=== PATIENT | female | born 1930 | race African-American/Black ===

== ENCOUNTER 2017-12-11 14:26 | Emergency (ER) | payer MEDICARE, OTHER ==
[~2017-12-11] VITALS: Ht 170.2 cm; Wt 77.0 kg
[~2017-12-11 14:26] MED LIST: ALPR-623 PO; CLON-529 PO; FURO-150 PO; HYDR-4069 PO; ISOS30TA6 PO; LABE100T PO; LISI40TA4 PO; MULT-1179 PO; PANT-47 PO; POTA8TAB3 PO
[2017-12-11 15:32] LABS: EOSINOPHILS # (AUTO) 0.1 X10'3 (0-0.9); EOSINOPHILS % (AUTO) 1.6 % (0-6); HEMATOCRIT 33.8 % (35.0-45.0); HEMOGLOBIN 11.1 g/dl (12.0-16.0); LYMPHOCYTES # (AUTO) 1.1 X10'3 (1.1-4.8); LYMPHOCYTES % (AUTO) 25.7 % (21-51); MEAN CORPUSCULAR HEMOGLOBIN 30.6 PG (27.0-31.0); MEAN CORPUSCULAR HGB CONC 32.8 % (33.0-36.5); MEAN CORPUSCULAR VOLUME 93.4 FL (78-98); MONOCYTES # (AUTO) 0.4 X10'3 (0-0.9); NEUTROPHILS # (AUTO) 2.8 X10'3 (1.8-7.7); NEUTROPHILS % (AUTO) 63.7 % (42-75); PLATELET COUNT 206 X10'3 (140-440); RED BLOOD COUNT 3.62 X10'6 (4.20-5.60); RED CELL DISTRIBUTION WIDTH 14.1 % (11.5-14.5); WHITE BLOOD COUNT 4.4 X10'3 (4.5-11.0)
[2017-12-11 15:47] LABS: ALANINE AMINOTRANSFERASE 25 U/L (12-78); ALBUMIN 3.8 G/DL (3.4-5.0); ALBUMIN/GLOBULIN RATIO 0.9 (1.1-1.5); ALKALINE PHOSPHATASE 100 IU/L (46-116); ANION GAP 9 (8-16); ASPARTATE AMINO TRANSFERASE 22 U/L (10-37); BILIRUBIN,TOTAL 0.5 MG/DL (0.1-1.0); BLOOD UREA NITROGEN 20 MG/DL (7-18); BUN/CREATININE RATIO 18.2 (6.6-38.0); CALCIUM 9.5 MG/DL (8.5-10.1); CHLORIDE 107 MMOL/L (99-107); GLUCOSE 95 MG/DL (70-104); POTASSIUM 3.9 MMOL/L (3.5-5.1); SODIUM 147 MMOL/L (135-145); TOTAL CARBON DIOXIDE 30.6 MMOL/L (24-32); TOTAL PROTEIN 7.9 G/DL (6.4-8.2); eGFR 57 ML/MIN
[2017-12-11] MEDS ORDERED: AZI25OT PO (16:19)
[2017-12-11 16:37] VITALS: BP 141/71
== END 2017-12-11 16:39 | disposition home or self-care (01) ==
LOC: ER 14:27
DX: J20.9 Acute bronchitis, unspecified (principal); I13.0 Hypertensive heart and chronic kidney disease with heart failure and stage 1 through stage 4 chronic kidney disease, or unspecified chronic kidney disease; I50.9 Heart failure, unspecified; N18.9 Chronic kidney disease, unspecified; G89.29 Other chronic pain; F41.9 Anxiety disorder, unspecified; M19.90 Unspecified osteoarthritis, unspecified site; Z88.8 Allergy status to other drugs, medicaments and biological substances; Z88.0 Allergy status to penicillin; Z88.5 Allergy status to narcotic agent; Z88.6 Allergy status to analgesic agent
CPT/HCPCS: 36415; 71046; 80053; 83605; 85025; 87040; 99285

== ENCOUNTER 2018-07-07 20:47 | Emergency (ER) | payer MEDICARE, OTHER ==
[~2018-07-07] VITALS: Ht 170.2 cm; Wt 79.0 kg
[~2018-07-07 20:47] MED LIST changes: -ALPR-623 PO; -CLON-529 PO; -ISOS30TA6 PO; -LABE100T PO; +LABE100T5 PO; +LISI10TA4 PO; -LISI40TA4 PO
[2018-07-07 22:10] LABS: BASOPHILS # (AUTO) 0.1 X10'3 (0-0.2); BASOPHILS % (AUTO) 1.3 % (0-1); EOSINOPHILS # (AUTO) 0.1 X10'3 (0-0.9); EOSINOPHILS % (AUTO) 1.7 % (0-6); HEMOGLOBIN 10.4 g/dl (12.0-16.0); LYMPHOCYTES # (AUTO) 1.3 X10'3 (1.1-4.8); LYMPHOCYTES % (AUTO) 33.9 % (21-51); MEAN CORPUSCULAR HEMOGLOBIN 30.6 PG (27.0-31.0); MEAN CORPUSCULAR HGB CONC 32.4 % (33.0-36.5); MEAN CORPUSCULAR VOLUME 94.3 FL (78-98); MEAN PLATELET VOLUME 8.5 FL (7.4-10.4); MONOCYTES # (AUTO) 0.4 X10'3 (0-0.9); NEUTROPHILS % (AUTO) 53.1 % (42-75); PLATELET COUNT 201 X10'3 (140-440); RED BLOOD COUNT 3.39 X10'6 (4.20-5.60); RED CELL DISTRIBUTION WIDTH 13.7 % (11.5-14.5); WHITE BLOOD COUNT 3.8 X10'3 (4.5-11.0)
[2018-07-07 22:21] LABS: D-DIMER 1.14 MG/L FEU (0-0.50); PROTHROMBIN TIME 10.5 SECONDS (9.0-12.0)
[2018-07-07 22:40] LABS: ALANINE AMINOTRANSFERASE 22 U/L (12-78); ALBUMIN 3.6 G/DL (3.4-5.0); ALKALINE PHOSPHATASE 101 IU/L (46-116); ANION GAP 8 (8-16); ASPARTATE AMINO TRANSFERASE 18 U/L (10-37); BILIRUBIN,TOTAL 0.4 MG/DL (0.1-1.0); BLOOD UREA NITROGEN 13 MG/DL (7-18); BUN/CREATININE RATIO 11.3 (6.6-38.0); CALCIUM 9.3 MG/DL (8.5-10.1); CHLORIDE 105 MMOL/L (99-107); CREATININE 1.15 MG/DL (0.40-0.90); GLUCOSE 103 MG/DL (70-104); POTASSIUM 3.9 MMOL/L (3.5-5.1); SODIUM 138 MMOL/L (135-145); TOTAL CARBON DIOXIDE 25.1 MMOL/L (24-32); TOTAL PROTEIN 7.1 G/DL (6.4-8.2); eGFR 54 ML/MIN
[2018-07-07 22:40] LABS: CLARITY,URINE SLIGHTLY CLOUDY (Clear); COLOR,URINE STRAW (Yellow); GLUCOSE, URINE NEGATIVE (Neg); KETONES,URINE NEGATIVE (Neg); LEUKOCYTE ESTERASE ,URINE SMALL (Neg); NITRITES, URINE POSITIVE (Neg); OCCULT BLOOD,URINE NEGATIVE (Neg); PROTEIN,URINE NEGATIVE (Neg); UROBILINOGEN,URINE 0.2 E.U/dL (0.2-1.0)
[2018-07-07 22:51] LABS: UA COLLECTION TYPE VOIDED
[2018-07-07 22:52] LABS: BACTERIA,URINE 4+ /HPF (Neg); RBC,URINE NONE SEEN /HPF (0-2); SQUAMOUS EPITHELIAL CELL,UR NONE SEEN /LPF (FEW)
[2018-07-07] MEDS ORDERED: iohexol 350MG/ML 100ml bottle IV ONE (23:27)
[2018-07-08] MEDS ORDERED: iohexol 350MG/ML 100ml bottle IV ONE (00:07)
[2018-07-08] MEDS ORDERED: CefTRIAXone/D5W-Rocephin 1gm 50 ML IV SCH ×2 (00:15→08:00)
[2018-07-08] MEDS ORDERED: acetaminophen 325mg tablet PO ONE (00:30)
[2018-07-08] MEDS ORDERED: furosemide 10 MG/1 ML 10ml inj IV ONE (01:45)
[2018-07-08] MEDS ORDERED: LORazepam 1 MG tablet PO ONE (02:25)
[2018-07-08 02:37] VITALS: BP 172/77
[2018-07-08] MEDS ORDERED: cefTRIAXone 1g/NS 100ml IVPB 100 ML IV SCH (08:00)
== END 2018-07-08 02:39 | disposition home or self-care (01) ==
LOC: ER 20:48
DX: R60.0 Localized edema (principal); I13.0 Hypertensive heart and chronic kidney disease with heart failure and stage 1 through stage 4 chronic kidney disease, or unspecified chronic kidney disease; E11.22 Type 2 diabetes mellitus with diabetic chronic kidney disease; N18.9 Chronic kidney disease, unspecified; I50.9 Heart failure, unspecified; M19.90 Unspecified osteoarthritis, unspecified site; G89.29 Other chronic pain; Z98.890 Other specified postprocedural states; Z90.710 Acquired absence of both cervix and uterus; Z88.6 Allergy status to analgesic agent; Z88.0 Allergy status to penicillin; Z88.5 Allergy status to narcotic agent; Z79.899 Other long term (current) drug therapy
CPT/HCPCS: 36415; 71045; 71275; 80053; 81001; 82553; 83880; 84484; 85025; 85379; 85610; 87077; 87088; 87186; 93005; 96365; 96375; 99285; J0696; J1940; J7030; Q9967

== ENCOUNTER 2018-09-18 14:37 | Emergency (ER) | payer MEDICARE ==
[~2018-09-18] VITALS: Ht 170.2 cm; Wt 80.0 kg
[2018-09-18 15:01] LABS: BASOPHILS % (AUTO) 0.7 % (0-1); EOSINOPHILS # (AUTO) 0.1 X10'3 (0-0.9); EOSINOPHILS % (AUTO) 2.9 % (0-6); HEMATOCRIT 31.9 % (35.0-45.0); HEMOGLOBIN 10.1 g/dl (12.0-16.0); LYMPHOCYTES # (AUTO) 1.3 X10'3 (1.1-4.8); LYMPHOCYTES % (AUTO) 33.7 % (21-51); MEAN CORPUSCULAR HGB CONC 31.5 % (33.0-36.5); MEAN CORPUSCULAR VOLUME 95.1 FL (78-98); MEAN PLATELET VOLUME 9.2 FL (7.4-10.4); MONOCYTES # (AUTO) 0.4 X10'3 (0-0.9); MONOCYTES % (AUTO) 9.4 % (2-12); NEUTROPHILS # (AUTO) 2.1 X10'3 (1.8-7.7); NEUTROPHILS % (AUTO) 53.3 % (42-75); PLATELET COUNT 192 X10'3 (140-440); RED BLOOD COUNT 3.35 X10'6 (4.20-5.60); RED CELL DISTRIBUTION WIDTH 15.4 % (11.5-14.5)
[2018-09-18 15:12] VITALS: BP 137/56
[2018-09-18 15:16] LABS: ALANINE AMINOTRANSFERASE 28 U/L (12-78); ALBUMIN 3.5 G/DL (3.4-5.0); ALKALINE PHOSPHATASE 94 IU/L (46-116); ANION GAP 5 (8-16); ASPARTATE AMINO TRANSFERASE 23 U/L (10-37); BILIRUBIN,TOTAL 0.3 MG/DL (0.1-1.0); BLOOD UREA NITROGEN 25 MG/DL (7-18); BUN/CREATININE RATIO 16.3 (6.6-38.0); CALCIUM 8.7 MG/DL (8.5-10.1); CHLORIDE 107 MMOL/L (99-107); CREATININE 1.53 MG/DL (0.40-0.90); GLUCOSE 129 MG/DL (70-104); SODIUM 143 MMOL/L (135-145); TOTAL CARBON DIOXIDE 30.6 MMOL/L (24-32); TOTAL PROTEIN 6.9 G/DL (6.4-8.2); eGFR 39 ML/MIN
[2018-09-18 15:22] LABS: PARTIAL THROMBOPLASTIN TIME 31 SECONDS (22-32); PROTHROMBIN TIME 10.2 SECONDS (9.0-12.0)
[2018-09-18] MEDS ORDERED: HYDROcodone/acetaminophen 5mg/325mg tablet PO ONE (15:40)
== END 2018-09-18 15:46 | disposition home or self-care (01) ==
LOC: ER 14:37
DX: R07.89 Other chest pain (principal); R60.0 Localized edema; I13.0 Hypertensive heart and chronic kidney disease with heart failure and stage 1 through stage 4 chronic kidney disease, or unspecified chronic kidney disease; E11.22 Type 2 diabetes mellitus with diabetic chronic kidney disease; N18.9 Chronic kidney disease, unspecified; I50.9 Heart failure, unspecified; M19.90 Unspecified osteoarthritis, unspecified site; G89.29 Other chronic pain; Z98.890 Other specified postprocedural states; Z90.710 Acquired absence of both cervix and uterus; Z87.01 Personal history of pneumonia (recurrent); Z88.6 Allergy status to analgesic agent; Z88.5 Allergy status to narcotic agent; Z88.0 Allergy status to penicillin; Z79.899 Other long term (current) drug therapy
CPT/HCPCS: 36415; 71045; 80053; 84484; 85025; 85610; 85730; 93005; 99285

== ENCOUNTER 2018-12-12 07:13 | Inpatient (IN) | payer MEDICARE, OTHER ==
[~2018-12-12] VITALS: Ht 170.2 cm; Wt 83.5 kg
[2018-12-12 08:08] LABS: BASOPHILS % (AUTO) 0.9 % (0-1); EOSINOPHILS # (AUTO) 0.1 X10'3 (0-0.9); EOSINOPHILS % (AUTO) 3.4 % (0-6); HEMATOCRIT 30.1 % (35.0-45.0); HEMOGLOBIN 9.6 g/dl (12.0-16.0); LYMPHOCYTES # (AUTO) 1.3 X10'3 (1.1-4.8); LYMPHOCYTES % (AUTO) 32.5 % (21-51); MEAN CORPUSCULAR HGB CONC 31.8 % (33.0-36.5); MEAN CORPUSCULAR VOLUME 94.2 FL (78-98); MEAN PLATELET VOLUME 9.4 FL (7.4-10.4); MONOCYTES # (AUTO) 0.4 X10'3 (0-0.9); MONOCYTES % (AUTO) 10.3 % (2-12); NEUTROPHILS % (AUTO) 52.9 % (42-75); PLATELET COUNT 183 X10'3 (140-440); RED BLOOD COUNT 3.19 X10'6 (4.20-5.60); WHITE BLOOD COUNT 3.9 X10'3 (4.5-11.0)
[2018-12-12 08:26] LABS: ALANINE AMINOTRANSFERASE 22 U/L (12-78); ALBUMIN 3.5 G/DL (3.4-5.0); ALKALINE PHOSPHATASE 82 IU/L (46-116); ANION GAP 10 (8-16); ASPARTATE AMINO TRANSFERASE 20 U/L (10-37); BILIRUBIN,TOTAL 0.3 MG/DL (0.1-1.0); BLOOD UREA NITROGEN 25 MG/DL (7-18); BUN/CREATININE RATIO 21.4 (6.6-38.0); CALCIUM 8.6 MG/DL (8.5-10.1); CHLORIDE 108 MMOL/L (99-107); CREATININE 1.17 MG/DL (0.40-0.90); GLUCOSE 91 MG/DL (70-104); POTASSIUM 4.2 MMOL/L (3.5-5.1); SODIUM 144 MMOL/L (135-145); TOTAL CARBON DIOXIDE 26.3 MMOL/L (24-32); TOTAL PROTEIN 7.1 G/DL (6.4-8.2); eGFR 53 ML/MIN
[2018-12-12 09:19] LABS: PARTIAL THROMBOPLASTIN TIME 30 SECONDS (22-32); PROTHROMBIN TIME 10.3 SECONDS (9.0-12.0)
[2018-12-12] MEDS ORDERED: aspirin 81mg tab.chew PO ONE (09:25)
[2018-12-12] MEDS: nitroGLYCERIN 0.4mg SUBLingual tab SL PRN ×2 (09:28→09:50)
[2018-12-12] MEDS ORDERED: AMLO10TA13 PO (09:33)
--- NOTE | 2018-12-12 09:52 | NUR ---
second dose of nitro given.
--- NOTE | 2018-12-12 10:05 | NUR ---
home med taken to the pharmacy.
--- NOTE | 2018-12-12 10:43 | NUR ---
DR. ABRAHAM AT BEDSIDE.
[2018-12-12] MEDS ORDERED: magnesium 4gm in 100ml NS 100 ML IV PRN (11:30)
[2018-12-12] MEDS ORDERED: magnesium Cl slow-release 64mg tablet PO PRN (11:30)
[2018-12-12] MEDS ORDERED: aminophylline 250mg/10ml inj. IV PRN (11:30)
[2018-12-12] MEDS ORDERED: metoprolol tartrate 1mg/ml inj IV PRN (11:30)
[2018-12-12] MEDS ORDERED: docusate sod 100mg capsule PO PRN (11:30)
[2018-12-12] MEDS ORDERED: regadenoson 0.4mg/5ml syringe IV PRN (11:30)
[2018-12-12] MEDS ORDERED: potassium Cl 20 mEq SR tablet PO PRN ×2 (11:30)
[2018-12-12] MEDS ORDERED: acetaminophen 325mg tablet PO PRN ×2 (11:30)
[2018-12-12] MEDS ORDERED: magnesium 2GM in 50ml NS 50 ML IV PRN (11:30)
[2018-12-12] MEDS ORDERED: morphine 4 MG/ML inj SYRINge IV PRN (11:30)
[2018-12-12] MEDS ORDERED: ondansetron/PF 4mg/2ml inj IV PRN (11:30)
[2018-12-12] MEDS ORDERED: potassium Cl 40MEQ/NS 500ml 500 ML IV PRN ×2 (11:30)
[2018-12-12] MEDS ORDERED: nitroGLYCERIN 0.4mg SUBLingual tab SL PRN (11:30)
[2018-12-12] MEDS ORDERED: insulin Lispro (HumaLOG) vial - multi-dose SQ SCH (11:35)
[2018-12-12] MEDS ORDERED: MESSAGE TO PHARMACY PO ONE (11:35)
[2018-12-12] MEDS ORDERED: dextrose 50%-water 50ml dispensing syringe IV PRN ×2 (11:35)
[2018-12-12] MEDS ORDERED: dextrose ORAL solution 15 GM/59 ML bottle PO PRN ×2 (11:35)
[2018-12-12] MEDS ORDERED: glucagon, human recombinant 1mg kit SUBCUT PRN (11:35)
[2018-12-12] MEDS: normal saline 1000ml 1,000 ML IV SCH (11:56)
--- NOTE | 2018-12-12 13:09 | NUR ---
I have received patient report from Justin HUGO
--- NOTE | 2018-12-12 13:11 | NUR ---
PATIENT STATES CP 06/26,OFFERED NITRO SINCE STILL ABLE TO TAKE LAST DOSE HOWEVER PATIENT REFUSED.SHAMIKA HUGO AWARE AND WILL TAKE PATIENT TO NUC MED AND THEN TO ROOM 302.
[2018-12-12] MEDS ORDERED: regadenoson 0.4mg/5ml syringe IV ONE (13:32)
[2018-12-12] MEDS ORDERED: aminophylline inj. 10 ML IV ONE (13:32)
[2018-12-12 13:35] VITALS: BP 209/80
[2018-12-12 14:00] VITALS: BP 220/87
[2018-12-12] MEDS: labetalol 100mg tablet PO SCH ×2 (14:07→20:25)
[2018-12-12 15:36] LABS: HEMOGLOBIN A1C 5.5 % (4.5-6.2)
[2018-12-12] MEDS: hydrALAZINE 25 MG tablet PO SCH (16:08)
--- NOTE | 2018-12-12 17:08 | NUR ---
Patient did not want to have nitro for chest pain, she said she was okay and that it made her have a headache, she didn't want any narcotics either.
--- NOTE | 2018-12-12 18:39 | NUR ---
I GAVE PATIENT REPORT TO GIOVANY ADAIR RN
[2018-12-12 19:00] VITALS: BP 170/82
[2018-12-12] MEDS: heparin, porcine 5000 units/ml vial SQ SCH (20:25)
[2018-12-12] MEDS: HYDROcodone/acetaminophen 5mg/325mg tablet PO PRN (20:26)
[2018-12-12] MEDS: insulin glargine (Lantus) pen - multi-dose SQ SCH (20:36)
[2018-12-12 23:00] VITALS: BP 150/55
[2018-12-13] VITALS (17 sets, daily range): BP systolic 103–193; BP diastolic 44–85
[2018-12-13] MEDS: hydrALAZINE 25 MG tablet PO SCH ×3 (00:32→16:00)
[2018-12-13] MEDS: normal saline 1000ml 1,000 ML IV SCH ×2 (03:52→14:23)
--- NOTE | 2018-12-13 06:00 | NUR ---
Patient in room PCU 3012. I have received report from Cielo HUGO and had the opportunity to ask questions and assume patient care.
--- NOTE | 2018-12-13 06:30 | NUR ---
Problems reprioritized. Patient report given, questions answered & plan of care reviewed with RILEY HUGO.
[2018-12-13 07:14] LABS: BASOPHILS % (AUTO) 1.2 % (0-1); EOSINOPHILS # (AUTO) 0.1 X10'3 (0-0.9); HEMATOCRIT 27.9 % (35.0-45.0); LYMPHOCYTES # (AUTO) 1.3 X10'3 (1.1-4.8); LYMPHOCYTES % (AUTO) 35.7 % (21-51); MEAN CORPUSCULAR HEMOGLOBIN 30.6 PG (27.0-31.0); MEAN CORPUSCULAR HGB CONC 32.3 % (33.0-36.5); MEAN CORPUSCULAR VOLUME 94.6 FL (78-98); MEAN PLATELET VOLUME 9.6 FL (7.4-10.4); MONOCYTES # (AUTO) 0.4 X10'3 (0-0.9); MONOCYTES % (AUTO) 11.4 % (2-12); NEUTROPHILS # (AUTO) 1.7 X10'3 (1.8-7.7); NEUTROPHILS % (AUTO) 47.7 % (42-75); PLATELET COUNT 167 X10'3 (140-440); RED BLOOD COUNT 2.95 X10'6 (4.20-5.60); RED CELL DISTRIBUTION WIDTH 15.3 % (11.5-14.5); WHITE BLOOD COUNT 3.7 X10'3 (4.5-11.0)
[2018-12-13] MEDS: labetalol 100mg tablet PO SCH ×3 (07:17→21:00)
[2018-12-13] MEDS: pantoprazole 40mg Tablet.DR PO SCH (07:17)
[2018-12-13] MEDS: potassium chloride 8mEq ER tablet PO SCH (07:17)
[2018-12-13] MEDS: lisinopril 10 MG tablet PO SCH (07:18)
[2018-12-13] MEDS: heparin, porcine 5000 units/ml vial SQ SCH ×2 (07:24→20:59)
[2018-12-13 07:37] LABS: ALBUMIN 3.1 G/DL (3.4-5.0); ANION GAP 10 (8-16); BLOOD UREA NITROGEN 20 MG/DL (7-18); BUN/CREATININE RATIO 20.4 (6.6-38.0); CALCIUM 8.6 MG/DL (8.5-10.1); CHLORIDE 109 MMOL/L (99-107); CHOL/HDL RATIO 2.9 (0.00-4.99); CHOLESTEROL 176 MG/DL (0-200); CREATININE 0.98 MG/DL (0.40-0.90); GLUCOSE 86 MG/DL (70-104); HDL CHOLESTEROL 61 MG/DL (35-60); LDL CHOLESTEROL 98 MG/DL (50-100); MAGNESIUM 1.9 MG/DL (1.5-2.4); POTASSIUM 3.6 MMOL/L (3.5-5.1); SODIUM 145 MMOL/L (135-145); TOTAL CARBON DIOXIDE 25.8 MMOL/L (24-32); TRIGLYCERIDES 61 MG/DL (20-135); eGFR 65 ML/MIN
[2018-12-13] MEDS ORDERED: furosemide 20MG tablet PO SCH (08:00)
[2018-12-13] MEDS: K and/or MAG REPLACEMENT MC SCH (08:00)
[2018-12-13] MEDS ORDERED: aminophylline inj. 10 ML IV ONE (09:42)
[2018-12-13] MEDS ORDERED: regadenoson 0.4mg/5ml syringe IV ONE (09:42)
--- NOTE | 2018-12-13 11:56 | NUR ---
PAGER ID: [phone] MESSAGE: [id number]. [facility] scan results are up. Tho HUGO [id number]
[2018-12-13] MEDS: HYDROcodone/acetaminophen 5mg/325mg tablet PO PRN (21:00)
[2018-12-13] MEDS: insulin glargine (Lantus) pen - multi-dose SQ SCH (21:00)
--- NOTE | 2018-12-13 23:03 | NUR ---
Patient in room PCU 3025. I have received report from BETHEL Nettles and had the opportunity to ask questions and assume patient care.
[2018-12-14] MEDS: hydrALAZINE 25 MG tablet PO SCH ×2 (00:21→08:06)
[2018-12-14 03:00] VITALS: BP 107/58
[2018-12-14] MEDS: normal saline 1000ml 1,000 ML IV SCH (04:33)
[2018-12-14 05:15] LABS: BASOPHILS % (AUTO) 1.4 % (0-1); EOSINOPHILS # (AUTO) 0.1 X10'3 (0-0.9); EOSINOPHILS % (AUTO) 3.6 % (0-6); HEMATOCRIT 28.7 % (35.0-45.0); HEMOGLOBIN 9.3 g/dl (12.0-16.0); LYMPHOCYTES # (AUTO) 1.3 X10'3 (1.1-4.8); LYMPHOCYTES % (AUTO) 36.8 % (21-51); MEAN CORPUSCULAR HEMOGLOBIN 30.4 PG (27.0-31.0); MEAN CORPUSCULAR HGB CONC 32.5 % (33.0-36.5); MEAN CORPUSCULAR VOLUME 93.6 FL (78-98); MEAN PLATELET VOLUME 9.8 FL (7.4-10.4); MONOCYTES # (AUTO) 0.4 X10'3 (0-0.9); MONOCYTES % (AUTO) 11.1 % (2-12); NEUTROPHILS # (AUTO) 1.7 X10'3 (1.8-7.7); NEUTROPHILS % (AUTO) 47.1 % (42-75); PLATELET COUNT 177 X10'3 (140-440); RED BLOOD COUNT 3.07 X10'6 (4.20-5.60); RED CELL DISTRIBUTION WIDTH 14.9 % (11.5-14.5); WHITE BLOOD COUNT 3.5 X10'3 (4.5-11.0)
[2018-12-14 05:22] LABS: ALBUMIN 3.2 G/DL (3.4-5.0); ANION GAP 9 (8-16); BLOOD UREA NITROGEN 21 MG/DL (7-18); BUN/CREATININE RATIO 20.8 (6.6-38.0); CALCIUM 8.9 MG/DL (8.5-10.1); CHLORIDE 105 MMOL/L (99-107); CREATININE 1.01 MG/DL (0.40-0.90); GLUCOSE 92 MG/DL (70-104); MAGNESIUM 1.9 MG/DL (1.5-2.4); SODIUM 140 MMOL/L (135-145); TOTAL CARBON DIOXIDE 26.2 MMOL/L (24-32); eGFR 63 ML/MIN
[2018-12-14 06:00] VITALS: BP 127/64
--- NOTE | 2018-12-14 06:27 | NUR ---
Problems reprioritized. Patient report given, questions answered & plan of care reviewed with Art, RN.
--- NOTE | 2018-12-14 07:55 | NUR ---
Pt ride arrived. Pt previously given DC instructions and had IV removed. Pt escorted to front of lobby where ride was waiting. Addendum: 12/14/18 at 0935 by Jared Vann III, RN This note was put in the wrong chart.
[2018-12-14] MEDS ORDERED: aspirin 81mg tablet.DR PO SCH (08:00)
[2018-12-14] MEDS ORDERED: isosorbide mononitrate 30mg tab.SR.24H PO SCH (08:00)
[2018-12-14] MEDS ORDERED: atorvastatin 20mg tablet PO SCH (08:00)
[2018-12-14] MEDS: K and/or MAG REPLACEMENT MC SCH (08:00)
[2018-12-14] MEDS: potassium chloride 8mEq ER tablet PO SCH (08:06)
[2018-12-14] MEDS: pantoprazole 40mg Tablet.DR PO SCH (08:06)
[2018-12-14 08:07] VITALS: BP_SYST 127
[2018-12-14] MEDS: lisinopril 10 MG tablet PO SCH (08:07)
[2018-12-14] MEDS: heparin, porcine 5000 units/ml vial SQ SCH (08:08)
[2018-12-14] MEDS: labetalol 100mg tablet PO SCH (08:12)
[2018-12-14] MEDS ORDERED: ATOR20TA PO (09:05)
[2018-12-14] MEDS ORDERED: ISOS30TA6 PO (09:05)
[2018-12-14] MEDS ORDERED: ASPI81TA52 PO (09:05)
--- NOTE | 2018-12-14 10:15 | NUR ---
Pt given DC instructions, IV removed. Pt will DC home via WC when her meds arrive from [facility].
--- NOTE | 2018-12-14 10:59 | NUR ---
Pt meds delivered. Pt wheeled out to POV in via volunteer.
== END 2018-12-14 11:00 | disposition home or self-care (01) | DRG 311 ==
LOC: ER 07:13 → ED HOLD 11:28 → PCU 3S 13:55
PROVIDERS: ADMIT Internal Medicine; ATTEND Family Medicine
PROC: 4A02XM4 Measurement of Cardiac Total Activity, External Approach (ICD-10-PCS; principal; 2018-12-12)
PROC: 3E033HZ Introduction of Radioactive Substance into Peripheral Vein, Percutaneous Approach (ICD-10-PCS; 2018-12-12)
DX: I24.9 Acute ischemic heart disease, unspecified (principal); I13.0 Hypertensive heart and chronic kidney disease with heart failure and stage 1 through stage 4 chronic kidney disease, or unspecified chronic kidney disease; I50.32 Chronic diastolic (congestive) heart failure; I71.9 Aortic aneurysm of unspecified site, without rupture; E11.22 Type 2 diabetes mellitus with diabetic chronic kidney disease; F41.9 Anxiety disorder, unspecified; G89.29 Other chronic pain; I25.10 Atherosclerotic heart disease of native coronary artery without angina pectoris; I49.5 Sick sinus syndrome; M54.9 Dorsalgia, unspecified; I34.0 Nonrheumatic mitral (valve) insufficiency; Z60.2 Problems related to living alone; K21.9 Gastro-esophageal reflux disease without esophagitis; M19.90 Unspecified osteoarthritis, unspecified site; N18.9 Chronic kidney disease, unspecified; Z66 Do not resuscitate; Z95.0 Presence of cardiac pacemaker; Z90.710 Acquired absence of both cervix and uterus; Z88.0 Allergy status to penicillin; Z88.6 Allergy status to analgesic agent; Z88.8 Allergy status to other drugs, medicaments and biological substances; Z79.899 Other long term (current) drug therapy; Z92.3 Personal history of irradiation; Z85.3 Personal history of malignant neoplasm of breast
CPT/HCPCS: 36415; 71045; 78451; 80048; 80053; 80061; 82948; 83036; 83735; 84484; 85025; 85610; 85730; 93005; 93017; 93306; 99285; A9500; G0378; J0280; J1644; J1815; J7030

== ENCOUNTER 2019-04-26 23:49 | Emergency (ER) | payer MEDICARE ==
[~2019-04-26] VITALS: Ht 170.2 cm; Wt 77.3 kg
[~2019-04-26 23:49] MED LIST changes: +AMLO10TA13 PO; +ASPI81TA52 PO; +ATOR20TA PO
[2019-04-27 00:44] LABS: BASOPHILS % (AUTO) 0.3 % (0-1); EOSINOPHILS # (AUTO) 0.1 X10'3 (0-0.9); EOSINOPHILS % (AUTO) 3.3 % (0-6); HEMATOCRIT 29.3 % (35.0-45.0); HEMOGLOBIN 9.4 g/dl (12.0-16.0); LYMPHOCYTES # (AUTO) 1.5 X10'3 (1.1-4.8); LYMPHOCYTES % (AUTO) 42.5 % (21-51); MEAN CORPUSCULAR HEMOGLOBIN 30.4 PG (27.0-31.0); MONOCYTES # (AUTO) 0.4 X10'3 (0-0.9); MONOCYTES % (AUTO) 11.7 % (2-12); NEUTROPHILS # (AUTO) 1.5 X10'3 (1.8-7.7); NEUTROPHILS % (AUTO) 42.2 % (42-75); PLATELET COUNT 162 X10'3 (140-440); RED BLOOD COUNT 3.08 X10'6 (4.20-5.60); RED CELL DISTRIBUTION WIDTH 14.3 % (11.5-14.5); WHITE BLOOD COUNT 3.6 X10'3 (4.5-11.0)
[2019-04-27 00:50] LABS: ALANINE AMINOTRANSFERASE 27 U/L (12-78); ALBUMIN 3.4 G/DL (3.4-5.0); ALKALINE PHOSPHATASE 82 IU/L (46-116); ANION GAP 5 (8-16); ASPARTATE AMINO TRANSFERASE 25 U/L (10-37); BILIRUBIN,TOTAL 0.2 MG/DL (0.1-1.0); BLOOD UREA NITROGEN 22 MG/DL (7-18); BUN/CREATININE RATIO 17.2 (6.6-38.0); CALCIUM 8.7 MG/DL (8.5-10.1); CHLORIDE 106 MMOL/L (99-107); CREATININE 1.28 MG/DL (0.40-0.90); GLUCOSE 91 MG/DL (70-104); POTASSIUM 4.3 MMOL/L (3.5-5.1); SODIUM 138 MMOL/L (135-145); TOTAL CARBON DIOXIDE 26.9 MMOL/L (24-32); TOTAL PROTEIN 6.7 G/DL (6.4-8.2); eGFR 48 ML/MIN
[2019-04-27 00:56] LABS: PARTIAL THROMBOPLASTIN TIME 35 SECONDS (22-32)
[2019-04-27] MEDS ORDERED: hyDRALAzine 10mg tablet PO STA (03:15)
[2019-04-27] MEDS ORDERED: nitroGLYCERIN 1gm ointment UD TP ONE (03:15)
[2019-04-27] MEDS ORDERED: labetalol 100mg tablet PO STA (03:15)
[2019-04-27] MEDS ORDERED: hydrALAZINE 25 MG tablet PO ONE (03:25)
[2019-04-27] MEDS ORDERED: HYDROcodone/acetaminophen 5mg/325mg tablet PO STA (05:25)
--- NOTE | 2019-04-27 05:26 | NUR ---
pt was pleased her bp is down, she said now she would like a 5 mg norco to get rid of the rest of the pain. MD informed of VS and request and so I ordered a norco per MD ok. Pt will be discharged.
[2019-04-27 07:07] VITALS: BP 159/73
== END 2019-04-27 07:10 | disposition home or self-care (01) ==
LOC: ER 23:50
DX: I13.0 Hypertensive heart and chronic kidney disease with heart failure and stage 1 through stage 4 chronic kidney disease, or unspecified chronic kidney disease (principal); E11.22 Type 2 diabetes mellitus with diabetic chronic kidney disease; N18.9 Chronic kidney disease, unspecified; I50.9 Heart failure, unspecified; G89.29 Other chronic pain; Z88.6 Allergy status to analgesic agent; Z88.0 Allergy status to penicillin; Z88.8 Allergy status to other drugs, medicaments and biological substances; Z79.899 Other long term (current) drug therapy; Z79.82 Long term (current) use of aspirin; Z87.440 Personal history of urinary (tract) infections; Z87.19 Personal history of other diseases of the digestive system; Z60.2 Problems related to living alone; Z98.890 Other specified postprocedural states; Z90.710 Acquired absence of both cervix and uterus; Z95.0 Presence of cardiac pacemaker
CPT/HCPCS: 36415; 71045; 80053; 83880; 84484; 85025; 85610; 85730; 93005; 99284

== ENCOUNTER 2019-07-02 09:16 | Emergency (ER) | payer MEDICARE ==
[~2019-07-02] VITALS: Ht 170.2 cm; Wt 78.2 kg
[2019-07-02 10:27] LABS: BASOPHILS % (AUTO) 1.4 % (0-1); EOSINOPHILS # (AUTO) 0.1 X10'3 (0-0.9); EOSINOPHILS % (AUTO) 2.4 % (0-6); HEMATOCRIT 32.7 % (35.0-45.0); HEMOGLOBIN 10.5 g/dl (12.0-16.0); LYMPHOCYTES # (AUTO) 1.1 X10'3 (1.1-4.8); LYMPHOCYTES % (AUTO) 31.9 % (21-51); MEAN CORPUSCULAR HEMOGLOBIN 30.9 PG (27.0-31.0); MEAN CORPUSCULAR HGB CONC 32.3 g/dL (33.0-36.5); MEAN CORPUSCULAR VOLUME 95.8 FL (78-98); MEAN PLATELET VOLUME 8.7 FL (7.4-10.4); MONOCYTES # (AUTO) 0.3 X10'3 (0-0.9); MONOCYTES % (AUTO) 9.8 % (2-12); NEUTROPHILS # (AUTO) 1.8 X10'3 (1.8-7.7); NEUTROPHILS % (AUTO) 54.5 % (42-75); PLATELET COUNT 187 X10'3 (140-440); RED BLOOD COUNT 3.41 X10'6 (4.20-5.60); RED CELL DISTRIBUTION WIDTH 13.7 % (11.5-14.5); WHITE BLOOD COUNT 3.4 X10'3 (4.5-11.0)
[2019-07-02 10:41] LABS: ALANINE AMINOTRANSFERASE 28 U/L (12-78); ALBUMIN/GLOBULIN RATIO 1.1 (1.1-1.5); ALKALINE PHOSPHATASE 77 IU/L (46-116); ANION GAP 7 (8-16); ASPARTATE AMINO TRANSFERASE 19 U/L (10-37); BILIRUBIN,TOTAL 0.4 MG/DL (0.1-1.0); BLOOD UREA NITROGEN 23 MG/DL (7-18); BUN/CREATININE RATIO 17.6 (6.6-38.0); CALCIUM 9.1 MG/DL (8.5-10.1); CHLORIDE 109 MMOL/L (99-107); CREATININE 1.31 MG/DL (0.40-0.90); GLUCOSE 89 MG/DL (70-104); POTASSIUM 4.6 MMOL/L (3.5-5.1); SODIUM 142 MMOL/L (135-145); TOTAL CARBON DIOXIDE 25.7 MMOL/L (24-32); TOTAL PROTEIN 7.7 G/DL (6.4-8.2); eGFR 46 ML/MIN
[2019-07-02 10:56] LABS: PARTIAL THROMBOPLASTIN TIME 31 SECONDS (22-32)
[2019-07-02 11:13] VITALS: BP 137/59
--- NOTE | 2019-07-02 11:21 | NUR ---
MD Duval in the room with the patient.
[2019-07-02] MEDS ORDERED: acetaminophen 325mg tablet PO ONE (11:30)
== END 2019-07-02 12:11 | disposition home or self-care (01) ==
LOC: ER 09:16
DX: R07.89 Other chest pain (principal); I13.0 Hypertensive heart and chronic kidney disease with heart failure and stage 1 through stage 4 chronic kidney disease, or unspecified chronic kidney disease; E11.22 Type 2 diabetes mellitus with diabetic chronic kidney disease; N18.9 Chronic kidney disease, unspecified; I50.9 Heart failure, unspecified; M19.90 Unspecified osteoarthritis, unspecified site; G89.29 Other chronic pain; F41.9 Anxiety disorder, unspecified; Z90.710 Acquired absence of both cervix and uterus; Z95.4 Presence of other heart-valve replacement; Z98.890 Other specified postprocedural states; Z95.0 Presence of cardiac pacemaker; Z88.0 Allergy status to penicillin; Z88.5 Allergy status to narcotic agent; Z88.8 Allergy status to other drugs, medicaments and biological substances; Z79.82 Long term (current) use of aspirin; Z79.899 Other long term (current) drug therapy
CPT/HCPCS: 36415; 71045; 80053; 83880; 84484; 85025; 85610; 85730; 93005; 99284

== ENCOUNTER 2019-10-05 13:24 | Emergency (ER) | payer MEDICARE ==
[~2019-10-05] VITALS: Ht 170.2 cm; Wt 60.0 kg
[2019-10-05 14:23] LABS: BASOPHILS % (AUTO) 1.3 % (0-1); EOSINOPHILS # (AUTO) 0.1 X10'3 (0-0.9); HEMOGLOBIN 11.3 g/dl (12.0-16.0); LYMPHOCYTES # (AUTO) 1.3 X10'3 (1.1-4.8); LYMPHOCYTES % (AUTO) 43.6 % (21-51); MEAN CORPUSCULAR HEMOGLOBIN 30.8 PG (27.0-31.0); MEAN CORPUSCULAR HGB CONC 32.2 g/dL (33.0-36.5); MEAN CORPUSCULAR VOLUME 95.7 FL (78-98); MEAN PLATELET VOLUME 8.3 FL (7.4-10.4); MONOCYTES # (AUTO) 0.3 X10'3 (0-0.9); MONOCYTES % (AUTO) 9.2 % (2-12); NEUTROPHILS # (AUTO) 1.3 X10'3 (1.8-7.7); NEUTROPHILS % (AUTO) 43.9 % (42-75); PLATELET COUNT 218 X10'3 (140-440); RED BLOOD COUNT 3.66 X10'6 (4.20-5.60); WHITE BLOOD COUNT 3.1 X10'3 (4.5-11.0)
[2019-10-05 14:39] LABS: ALANINE AMINOTRANSFERASE 22 U/L (12-78); ALBUMIN 3.9 G/DL (3.4-5.0); ALBUMIN/GLOBULIN RATIO 1.1 (1.1-1.5); ALKALINE PHOSPHATASE 80 IU/L (46-116); AMYLASE 80 U/L (25-115); ANION GAP 9 (8-16); ASPARTATE AMINO TRANSFERASE 25 U/L (10-37); BILIRUBIN,TOTAL 0.3 MG/DL (0.1-1.0); BLOOD UREA NITROGEN 14 MG/DL (7-18); BUN/CREATININE RATIO 12.6 (6.6-38.0); CALCIUM 9.8 MG/DL (8.5-10.1); CHLORIDE 104 MMOL/L (99-107); CREATININE 1.11 MG/DL (0.40-0.90); GLUCOSE 107 MG/DL (70-104); LIPASE 84 U/L (73-393); POTASSIUM 4.2 MMOL/L (3.5-5.1); SODIUM 141 MMOL/L (135-145); TOTAL CARBON DIOXIDE 28.1 MMOL/L (24-32); TOTAL PROTEIN 7.6 G/DL (6.4-8.2); eGFR 56 ML/MIN
[2019-10-05] MEDS ORDERED: iohexol 350MG/ML 100ml bottle IV ONE (16:00)
[2019-10-05 17:10] LABS: CLARITY,URINE CLOUDY (Clear); COLOR,URINE YELLOW (Yellow); GLUCOSE, URINE NEGATIVE (Neg); KETONES,URINE NEGATIVE (Neg); LEUKOCYTE ESTERASE ,URINE SMALL (Neg); NITRITES, URINE NEGATIVE (Neg); OCCULT BLOOD,URINE TRACE-INTACT (Neg); PH,URINE 5.5 (4.8-8.0); PROTEIN,URINE TRACE mg/dl (Neg); UROBILINOGEN,URINE 0.2 E.U/dL (0.2-1.0)
[2019-10-05 17:15] LABS: UA COLLECTION TYPE URINAL
[2019-10-05 17:26] LABS: BACTERIA,URINE 4+ /HPF (Neg); RBC,URINE 0-2 /HPF (0-2); WBC,URINE 20-30 /HPF (0-4)
[2019-10-05 17:28] LABS: MUCUS STRANDS MODERATE /LPF (Neg); RENAL CELLS, URINE FEW /HPF; SQUAMOUS EPITHELIAL CELL,UR FEW /LPF (FEW); TRANSITIONAL EPI CELLS,URINE FEW /HPF; WBC CLUMPS,URINE MODERATE /HPF (NEGATIVE)
[2019-10-05] MEDS ORDERED: ONDA4TAB12 PO (18:53)
[2019-10-05 18:59] VITALS: BP 148/68
--- NOTE | 2019-10-08 17:03 | NUR ---
CALLED LEFT A MESSAGE ON HER MESSAGE MACHINE. (IT SAID HER NAME). ASKED HER TO CALL BACK FOR A POSSIBLE MEDICATION. SHE WILL NEED CIPRO 500MG PO BID X 5 DAYS. WE NEED A NAME OF A PHARMACY TO CALL IN RX.
== END 2019-10-05 19:04 | disposition home or self-care (01) ==
LOC: ER 13:25
DX: R11.2 Nausea with vomiting, unspecified (principal); R19.7 Diarrhea, unspecified; R07.89 Other chest pain; M79.18 Myalgia, other site; E86.0 Dehydration; M19.90 Unspecified osteoarthritis, unspecified site; G89.29 Other chronic pain; I13.0 Hypertensive heart and chronic kidney disease with heart failure and stage 1 through stage 4 chronic kidney disease, or unspecified chronic kidney disease; E11.22 Type 2 diabetes mellitus with diabetic chronic kidney disease; N18.9 Chronic kidney disease, unspecified; I50.9 Heart failure, unspecified; F41.9 Anxiety disorder, unspecified; Z90.710 Acquired absence of both cervix and uterus; Z98.890 Other specified postprocedural states; Z87.442 Personal history of urinary calculi; Z88.6 Allergy status to analgesic agent; Z88.5 Allergy status to narcotic agent; Z88.8 Allergy status to other drugs, medicaments and biological substances; Z79.82 Long term (current) use of aspirin; Z79.899 Other long term (current) drug therapy
CPT/HCPCS: 36415; 71045; 71275; 80053; 81001; 82150; 83690; 84484; 85025; 87077; 87088; 87186; 93005; 99284; Q9967

== ENCOUNTER 2019-12-04 16:38 | Emergency (ER) | payer MEDICARE ==
[~2019-12-04] VITALS: Ht 170.2 cm; Wt 77.3 kg
[~2019-12-04 16:38] MED LIST changes: +ONDA4TAB12 PO
[2019-12-04] MEDS ORDERED: ondansetron/PF 4mg/2ml inj IV ONE (17:10)
[2019-12-04] MEDS ORDERED: normal saline 1000ml 1,000 ML IV ONE (17:10)
[2019-12-04] MEDS ORDERED: HYDROcodone/acetaminophen 5mg/325mg tablet PO ONE (17:25)
[2019-12-04] MEDS ORDERED: diphenhydrAMINE 25mg capsule PO ONE (17:25)
[2019-12-04 17:34] LABS: BASOPHILS % (AUTO) 0.3 % (0-1); EOSINOPHILS % (AUTO) 1.5 % (0-6); HEMATOCRIT 31.1 % (35.0-45.0); HEMOGLOBIN 10.2 g/dl (12.0-16.0); LYMPHOCYTES # (AUTO) 1.2 X10'3 (1.1-4.8); LYMPHOCYTES % (AUTO) 36.5 % (21-51); MEAN CORPUSCULAR HEMOGLOBIN 31.1 PG (27.0-31.0); MEAN CORPUSCULAR HGB CONC 32.7 g/dL (33.0-36.5); MEAN CORPUSCULAR VOLUME 94.9 FL (78-98); MEAN PLATELET VOLUME 8.5 FL (7.4-10.4); MONOCYTES # (AUTO) 0.3 X10'3 (0-0.9); MONOCYTES % (AUTO) 10.2 % (2-12); NEUTROPHILS # (AUTO) 1.7 X10'3 (1.8-7.7); NEUTROPHILS % (AUTO) 51.5 % (42-75); PLATELET COUNT 182 X10'3 (140-440); RED BLOOD COUNT 3.28 X10'6 (4.20-5.60); RED CELL DISTRIBUTION WIDTH 14.2 % (11.5-14.5); WHITE BLOOD COUNT 3.3 X10'3 (4.5-11.0)
--- NOTE | 2019-12-04 17:46 | NUR ---
ERMELINDA [phone], [facility]
[2019-12-04 17:47] LABS: PARTIAL THROMBOPLASTIN TIME 31 SECONDS (22-32)
[2019-12-04 17:54] LABS: ALANINE AMINOTRANSFERASE 31 U/L (12-78); ALBUMIN 3.6 G/DL (3.4-5.0); ALBUMIN/GLOBULIN RATIO 1.1 (1.1-1.5); ALKALINE PHOSPHATASE 71 IU/L (46-116); ANION GAP 9 (8-16); ASPARTATE AMINO TRANSFERASE 21 U/L (10-37); BILIRUBIN,TOTAL 0.5 MG/DL (0.1-1.0); BLOOD UREA NITROGEN 17 MG/DL (7-18); CHLORIDE 109 MMOL/L (99-107); CREATININE 1.06 MG/DL (0.40-0.90); GLUCOSE 98 MG/DL (70-104); MAGNESIUM 1.9 MG/DL (1.5-2.4); POTASSIUM 4.1 MMOL/L (3.5-5.1); SODIUM 145 MMOL/L (135-145); TOTAL CARBON DIOXIDE 26.8 MMOL/L (24-32); TOTAL PROTEIN 6.9 G/DL (6.4-8.2); eGFR 59 ML/MIN
[2019-12-04] MEDS ORDERED: ONDA8TAB6 PO (18:49)
[2019-12-04] MEDS ORDERED: AZIT-63 PO (18:49)
[2019-12-04 19:21] VITALS: BP 168/70
== END 2019-12-04 19:51 | disposition home or self-care (01) ==
LOC: ER 16:39
DX: R07.89 Other chest pain (principal); R11.2 Nausea with vomiting, unspecified; R05 Cough; I11.0 Hypertensive heart disease with heart failure; I50.9 Heart failure, unspecified; E11.9 Type 2 diabetes mellitus without complications; M19.90 Unspecified osteoarthritis, unspecified site; G89.29 Other chronic pain; F41.9 Anxiety disorder, unspecified; Z90.710 Acquired absence of both cervix and uterus; Z98.890 Other specified postprocedural states; Z60.2 Problems related to living alone; Z95.0 Presence of cardiac pacemaker; Z88.6 Allergy status to analgesic agent; Z88.0 Allergy status to penicillin; Z88.5 Allergy status to narcotic agent; Z79.82 Long term (current) use of aspirin; Z79.899 Other long term (current) drug therapy
CPT/HCPCS: 36415; 71045; 80053; 83605; 83735; 84145; 84484; 85025; 85610; 85730; 87040; 93005; 96374; 99284; J2405; J7030; Q0163

== ENCOUNTER 2020-03-26 07:12 | Emergency (ER) | payer MEDICARE ==
[~2020-03-26] VITALS: Ht 170.2 cm; Wt 77.9 kg
[~2020-03-26 07:12] MED LIST changes: +ONDA8TAB6 PO
[2020-03-26 07:53] LABS: BASOPHILS # (AUTO) 0.1 X10'3 (0-0.2); BASOPHILS % (AUTO) 1.4 % (0-1); EOSINOPHILS # (AUTO) 0.1 X10'3 (0-0.9); HEMATOCRIT 31.6 % (35.0-45.0); HEMOGLOBIN 10.1 g/dl (12.0-16.0); LYMPHOCYTES # (AUTO) 1.1 X10'3 (1.1-4.8); LYMPHOCYTES % (AUTO) 30.5 % (21-51); MEAN CORPUSCULAR HEMOGLOBIN 30.6 PG (27.0-31.0); MEAN CORPUSCULAR HGB CONC 32.1 g/dL (33.0-36.5); MEAN CORPUSCULAR VOLUME 95.2 FL (78-98); MEAN PLATELET VOLUME 9.1 FL (7.4-10.4); MONOCYTES # (AUTO) 0.3 X10'3 (0-0.9); MONOCYTES % (AUTO) 9.1 % (2-12); NEUTROPHILS # (AUTO) 2.1 X10'3 (1.8-7.7); PLATELET COUNT 170 X10'3 (140-440); RED BLOOD COUNT 3.31 X10'6 (4.20-5.60); RED CELL DISTRIBUTION WIDTH 13.4 % (11.5-14.5); WHITE BLOOD COUNT 3.7 X10'3 (4.5-11.0)
[2020-03-26] MEDS ORDERED: nitroGLYCERIN 0.4mg/hour patch TD ONE (08:05)
[2020-03-26 08:08] LABS: ALANINE AMINOTRANSFERASE 19 U/L (12-78); ALBUMIN 3.6 G/DL (3.4-5.0); ALBUMIN/GLOBULIN RATIO 1.1 (1.1-1.5); ALKALINE PHOSPHATASE 71 IU/L (46-116); ANION GAP 9 (8-16); ASPARTATE AMINO TRANSFERASE 25 U/L (10-37); BILIRUBIN,TOTAL 0.3 MG/DL (0.1-1.0); BLOOD UREA NITROGEN 21 MG/DL (7-18); BUN/CREATININE RATIO 17.2 (6.6-38.0); CALCIUM 8.9 MG/DL (8.5-10.1); CHLORIDE 109 MMOL/L (99-107); CREATININE 1.22 MG/DL (0.40-0.90); GLUCOSE 102 MG/DL (70-104); SODIUM 145 MMOL/L (135-145); TOTAL CARBON DIOXIDE 26.8 MMOL/L (24-32); TOTAL PROTEIN 6.9 G/DL (6.4-8.2); eGFR 50 ML/MIN
[2020-03-26] MEDS ORDERED: acetaminophen 325mg tablet PO ONE (09:15)
[2020-03-26 09:48] VITALS: BP 144/68
== END 2020-03-26 09:52 | disposition home or self-care (01) ==
LOC: ER 07:13
DX: R07.89 Other chest pain (principal); I13.0 Hypertensive heart and chronic kidney disease with heart failure and stage 1 through stage 4 chronic kidney disease, or unspecified chronic kidney disease; E11.22 Type 2 diabetes mellitus with diabetic chronic kidney disease; N18.9 Chronic kidney disease, unspecified; I50.9 Heart failure, unspecified; M19.90 Unspecified osteoarthritis, unspecified site; G89.29 Other chronic pain; Z98.890 Other specified postprocedural states; Z90.710 Acquired absence of both cervix and uterus; Z95.0 Presence of cardiac pacemaker; Z87.01 Personal history of pneumonia (recurrent); Z88.6 Allergy status to analgesic agent; Z88.0 Allergy status to penicillin; Z88.5 Allergy status to narcotic agent; Z79.82 Long term (current) use of aspirin; Z79.899 Other long term (current) drug therapy
CPT/HCPCS: 36415; 71045; 80053; 84484; 85025; 93005; 99285

== ENCOUNTER 2020-09-22 18:25 | Emergency (ER) | payer MEDICARE ==
[~2020-09-22] VITALS: Ht 170.2 cm; Wt 66.3 kg
[2020-09-22 19:09] LABS: CLARITY,URINE CLEAR (Clear); COLOR,URINE YELLOW (Yellow); GLUCOSE, URINE NEGATIVE (Neg); KETONES,URINE TRACE mg/dl (Neg); LEUKOCYTE ESTERASE ,URINE NEGATIVE (Neg); NITRITES, URINE NEGATIVE (Neg); OCCULT BLOOD,URINE NEGATIVE (Neg); PH,URINE 5.5 (4.8-8.0); PROTEIN,URINE 100 mg/dl (Neg)
[2020-09-22 19:16] LABS: UA COLLECTION TYPE CLN CATCH MIDSTREAM
[2020-09-22 19:17] LABS: BACTERIA,URINE FEW /HPF (Neg); RBC,URINE 0-2 /HPF (0-2); SQUAMOUS EPITHELIAL CELL,UR FEW /LPF (FEW); WBC,URINE 0-4 /HPF (0-4)
[2020-09-22 19:57] LABS: BASOPHILS % (AUTO) 0.5 % (0-1); EOSINOPHILS % (AUTO) 0 % (0-6); HEMATOCRIT 32.9 % (35.0-45.0); HEMOGLOBIN 10.6 g/dl (12.0-16.0); LYMPHOCYTES # (AUTO) 0.7 X10'3 (1.1-4.8); LYMPHOCYTES % (AUTO) 19.9 % (21-51); MEAN CORPUSCULAR HGB CONC 32.3 g/dL (33.0-36.5); MEAN CORPUSCULAR VOLUME 95.9 FL (78-98); MONOCYTES # (AUTO) 0.3 X10'3 (0-0.9); MONOCYTES % (AUTO) 8.2 % (2-12); NEUTROPHILS # (AUTO) 2.4 X10'3 (1.8-7.7); NEUTROPHILS % (AUTO) 71.4 % (42-75); PLATELET COUNT 123 X10'3 (140-440); RED BLOOD COUNT 3.43 X10'6 (4.20-5.60); WHITE BLOOD COUNT 3.4 X10'3 (4.5-11.0)
[2020-09-22 20:13] LABS: ALANINE AMINOTRANSFERASE 30 U/L (12-78); ALBUMIN 3.3 G/DL (3.4-5.0); ALBUMIN/GLOBULIN RATIO 0.9 (1.1-1.5); ALKALINE PHOSPHATASE 55 IU/L (46-116); ANION GAP 7 (8-16); ASPARTATE AMINO TRANSFERASE 47 U/L (10-37); BILIRUBIN,TOTAL 0.5 MG/DL (0.1-1.0); BLOOD UREA NITROGEN 22 MG/DL (7-18); BUN/CREATININE RATIO 17.2 (6.6-38.0); CALCIUM 8.6 MG/DL (8.5-10.1); CHLORIDE 104 MMOL/L (99-107); CREATININE 1.28 MG/DL (0.40-0.90); GLUCOSE 105 MG/DL (70-104); POTASSIUM 3.6 MMOL/L (3.5-5.1); SODIUM 138 MMOL/L (135-145); TOTAL CARBON DIOXIDE 26.9 MMOL/L (24-32); TOTAL PROTEIN 6.9 G/DL (6.4-8.2); eGFR 48 ML/MIN
[2020-09-22] MEDS ORDERED: aspirin 81mg tab.chew PO ONE (20:25)
[2020-09-22] MEDS ORDERED: acetaminophen 325mg tablet PO ONE (20:25)
[2020-09-22] MEDS ORDERED: normal saline 1000ML IV soln IVB ONE (21:00)
[2020-09-22] MEDS ORDERED: nitroGLYCERIN 1gm ointment UD TP ONE (21:50)
--- NOTE | 2020-09-22 22:06 | NUR ---
Provider wants to hold nitro paste at this time.
[2020-09-23 00:12] VITALS: BP 147/63
== END 2020-09-23 00:48 | disposition home or self-care (01) ==
LOC: ER 18:26
DX: R53.1 Weakness (principal); R07.89 Other chest pain; R43.8 Other disturbances of smell and taste; I11.0 Hypertensive heart disease with heart failure; I50.9 Heart failure, unspecified; I13.0 Hypertensive heart and chronic kidney disease with heart failure and stage 1 through stage 4 chronic kidney disease, or unspecified chronic kidney disease; E11.22 Type 2 diabetes mellitus with diabetic chronic kidney disease; N18.9 Chronic kidney disease, unspecified; M19.90 Unspecified osteoarthritis, unspecified site; G89.29 Other chronic pain; F41.9 Anxiety disorder, unspecified; Z87.01 Personal history of pneumonia (recurrent); Z87.440 Personal history of urinary (tract) infections; Z85.9 Personal history of malignant neoplasm, unspecified; Z90.710 Acquired absence of both cervix and uterus; Z98.890 Other specified postprocedural states; Z95.0 Presence of cardiac pacemaker; Z60.2 Problems related to living alone; Z88.6 Allergy status to analgesic agent; Z88.0 Allergy status to penicillin; Z88.8 Allergy status to other drugs, medicaments and biological substances; Z79.82 Long term (current) use of aspirin; Z79.899 Other long term (current) drug therapy
CPT/HCPCS: 36415; 70450; 80053; 81001; 83880; 84443; 84484; 85025; 93005; 99285; J7030

== ENCOUNTER 2020-09-26 11:49 | Emergency (ER) | payer MEDICARE ==
[~2020-09-26] VITALS: Ht 170.2 cm; Wt 80.0 kg
--- NOTE | 2020-09-26 14:16 | NUR ---
Grandson (who brought pt in) - Porsha: [phone] Granddaughter - Marquise: [phone]
[2020-09-26 14:53] LABS: BASOPHILS % (AUTO) 0.3 % (0-1); EOSINOPHILS % (AUTO) 0 % (0-6); HEMOGLOBIN 10.8 g/dl (12.0-16.0); LYMPHOCYTES # (AUTO) 0.5 X10'3 (1.1-4.8); LYMPHOCYTES % (AUTO) 6.5 % (21-51); MEAN CORPUSCULAR HEMOGLOBIN 30.3 PG (27.0-31.0); MEAN CORPUSCULAR HGB CONC 31.9 g/dL (33.0-36.5); MEAN PLATELET VOLUME 10.2 FL (7.4-10.4); MONOCYTES # (AUTO) 0.3 X10'3 (0-0.9); MONOCYTES % (AUTO) 4.1 % (2-12); NEUTROPHILS # (AUTO) 6.3 X10'3 (1.8-7.7); NEUTROPHILS % (AUTO) 89.1 % (42-75); PLATELET COUNT 180 X10'3 (140-440); RED BLOOD COUNT 3.58 X10'6 (4.20-5.60); RED CELL DISTRIBUTION WIDTH 12.8 % (11.5-14.5)
[2020-09-26 15:02] LABS: PARTIAL THROMBOPLASTIN TIME 40 SECONDS (22-32)
[2020-09-26 15:04] LABS: ALANINE AMINOTRANSFERASE 43 U/L (12-78); ALBUMIN 2.8 G/DL (3.4-5.0); ALBUMIN/GLOBULIN RATIO 0.7 (1.1-1.5); ALKALINE PHOSPHATASE 53 IU/L (46-116); ANION GAP 8 (8-16); ASPARTATE AMINO TRANSFERASE 72 U/L (10-37); BILIRUBIN,TOTAL 0.5 MG/DL (0.1-1.0); BLOOD UREA NITROGEN 27 MG/DL (7-18); BUN/CREATININE RATIO 24.3 (6.6-38.0); CALCIUM 8.7 MG/DL (8.5-10.1); CHLORIDE 105 MMOL/L (99-107); CREATININE 1.11 MG/DL (0.40-0.90); GLUCOSE 131 MG/DL (70-104); POTASSIUM 4.1 MMOL/L (3.5-5.1); SODIUM 139 MMOL/L (135-145); TOTAL CARBON DIOXIDE 26.4 MMOL/L (24-32); eGFR 56 ML/MIN
[2020-09-26 15:25] LABS: CLARITY,URINE CLOUDY (Clear); GLUCOSE, URINE NEGATIVE (Neg); KETONES,URINE TRACE mg/dl (Neg); LEUKOCYTE ESTERASE ,URINE NEGATIVE (Neg); NITRITES, URINE NEGATIVE (Neg); OCCULT BLOOD,URINE NEGATIVE (Neg); PROTEIN,URINE >=300 mg/dl (Neg)
[2020-09-26 15:27] LABS: UA COLLECTION TYPE STRAIGHT CATH
[2020-09-26 15:29] LABS: COLOR,URINE DARK YELLOW (Yellow)
[2020-09-26 15:51] LABS: RBC,URINE NONE SEEN /HPF (0-2); WBC,URINE NONE SEEN /HPF (0-4)
[2020-09-26 15:52] LABS: AMORPHOUS URATES 2+; BACTERIA,URINE NONE SEEN /HPF (Neg); SQUAMOUS EPITHELIAL CELL,UR FEW /LPF (FEW); TRANSITIONAL EPI CELLS,URINE FEW /HPF
[2020-09-26 15:53] LABS: FINE GRANULAR CAST 0-3 /LPF (NEGATIVE); HYALINE CASTS 0-3 /LPF (NEGATIVE)
[2020-09-26] MEDS ORDERED: ondansetron 4mg rapidly disintigrating tab PO ONE (16:45)
[2020-09-26] MEDS ORDERED: HYDROcodone/acetaminophen 5mg/325mg tablet PO ONE (16:45)
[2020-09-26 17:44] VITALS: BP 110/88
== END 2020-09-26 17:45 | disposition home or self-care (01) ==
LOC: ER 11:50
DX: B34.9 Viral infection, unspecified (principal); R53.1 Weakness; R11.0 Nausea; R19.7 Diarrhea, unspecified; I13.0 Hypertensive heart and chronic kidney disease with heart failure and stage 1 through stage 4 chronic kidney disease, or unspecified chronic kidney disease; I50.9 Heart failure, unspecified; E11.22 Type 2 diabetes mellitus with diabetic chronic kidney disease; N18.9 Chronic kidney disease, unspecified; M19.90 Unspecified osteoarthritis, unspecified site; G89.29 Other chronic pain; F41.9 Anxiety disorder, unspecified; Z87.01 Personal history of pneumonia (recurrent); Z87.440 Personal history of urinary (tract) infections; Z85.9 Personal history of malignant neoplasm, unspecified; Z90.710 Acquired absence of both cervix and uterus; Z98.890 Other specified postprocedural states; Z95.0 Presence of cardiac pacemaker; Z60.2 Problems related to living alone; Z88.0 Allergy status to penicillin; Z88.6 Allergy status to analgesic agent; Z88.5 Allergy status to narcotic agent; Z88.8 Allergy status to other drugs, medicaments and biological substances; Z79.82 Long term (current) use of aspirin; Z79.899 Other long term (current) drug therapy
CPT/HCPCS: 36415; 71045; 80053; 81001; 83605; 83880; 84484; 85025; 85610; 85730; 87040; 93005; 99285

== ENCOUNTER 2020-12-11 07:16 | Inpatient (IN) | payer MEDICARE ==
[~2020-12-11] VITALS: Ht 170.2 cm; Wt 74.5 kg
[~2020-12-11 07:16] MED LIST changes: +LISI10TA27 PO; -LISI10TA4 PO
[2020-12-11] MEDS ORDERED: aspirin 81mg tab.chew PO ONE (07:40)
[2020-12-11 07:51] LABS: BASOPHILS % (AUTO) 0.8 % (0-1); EOSINOPHILS # (AUTO) 0.1 X10'3 (0-0.9); EOSINOPHILS % (AUTO) 2.1 % (0-6); HEMATOCRIT 28.8 % (35.0-45.0); HEMOGLOBIN 9.4 g/dl (12.0-16.0); LYMPHOCYTES # (AUTO) 1.1 X10'3 (1.1-4.8); LYMPHOCYTES % (AUTO) 26.8 % (21-51); MEAN CORPUSCULAR HGB CONC 32.6 g/dL (33.0-36.5); MEAN CORPUSCULAR VOLUME 98.2 FL (78-98); MEAN PLATELET VOLUME 9.7 FL (7.4-10.4); MONOCYTES # (AUTO) 0.5 X10'3 (0-0.9); MONOCYTES % (AUTO) 13.3 % (2-12); NEUTROPHILS # (AUTO) 2.3 X10'3 (1.8-7.7); PLATELET COUNT 157 X10'3 (140-440); RED BLOOD COUNT 2.93 X10'6 (4.20-5.60); RED CELL DISTRIBUTION WIDTH 14.3 % (11.5-14.5)
[2020-12-11 08:06] LABS: ALANINE AMINOTRANSFERASE 36 U/L (12-78); ALBUMIN 3.4 G/DL (3.4-5.0); ALKALINE PHOSPHATASE 72 IU/L (46-116); ANION GAP 8 (8-16); ASPARTATE AMINO TRANSFERASE 37 U/L (10-37); BILIRUBIN,TOTAL 0.4 MG/DL (0.1-1.0); BLOOD UREA NITROGEN 24 MG/DL (7-18); BUN/CREATININE RATIO 23.8 (6.6-38.0); CALCIUM 8.9 MG/DL (8.5-10.1); CHLORIDE 108 MMOL/L (99-107); CREATININE 1.01 MG/DL (0.40-0.90); GLUCOSE 94 MG/DL (70-104); POTASSIUM 4.1 MMOL/L (3.5-5.1); SODIUM 143 MMOL/L (135-145); TOTAL CARBON DIOXIDE 27.2 MMOL/L (24-32); TOTAL PROTEIN 6.9 G/DL (6.4-8.2); eGFR 62 ML/MIN
[2020-12-11] MEDS ORDERED: lisinopril 10 MG tablet PO ONE (10:10)
[2020-12-11] MEDS ORDERED: potassium Cl 40MEQ/1/2NS 520ml 520 ML IV PRN ×2 (10:40)
[2020-12-11] MEDS ORDERED: mag hydrox/Alum hydrox/simeth 30ml oral suspension PO PRN (10:40)
[2020-12-11] MEDS ORDERED: diphenhydrAMINE 25mg capsule PO PRN (10:40)
[2020-12-11] MEDS ORDERED: metoprolol tartrate 1mg/ml inj IV PRN (10:40)
[2020-12-11] MEDS ORDERED: magnesium hydroxide 30ml (MOM) UD suspension PO PRN (10:40)
[2020-12-11] MEDS ORDERED: nitroGLYCERIN 0.4mg SUBLingual tab SL PRN (10:40)
[2020-12-11] MEDS ORDERED: magnesium 4gm in 100ml NS 100 ML IV PRN (10:40)
[2020-12-11] MEDS ORDERED: regadenoson 0.4mg/5ml syringe IV PRN (10:40)
[2020-12-11] MEDS ORDERED: ondansetron/PF 4mg/2ml inj IV PRN (10:40)
[2020-12-11] MEDS ORDERED: magnesium 2GM in 50ml NS 50 ML IV PRN (10:40)
[2020-12-11] MEDS ORDERED: magnesium Cl slow-release 64mg tablet PO PRN (10:40)
[2020-12-11] MEDS ORDERED: potassium Cl 20 mEq SR tablet PO PRN ×2 (10:40)
[2020-12-11] MEDS ORDERED: aminophylline 250mg/10ml inj. IV PRN (10:40)
[2020-12-11] MEDS ORDERED: acetaminophen 325mg tablet PO PRN ×2 (10:40)
[2020-12-11] MEDS ORDERED: acetaminophen 650mg rectal suppository RC PRN (10:40)
[2020-12-11] MEDS ORDERED: bisacodyl 10mg suppository rectal RC PRN (10:40)
[2020-12-11] MEDS: normal saline 1000ml 1,000 ML IV SCH (11:10)
[2020-12-11 11:44] LABS: HEMOGLOBIN A1C 5.4 % (4.5-6.2)
[2020-12-11] MEDS ORDERED: POTA8CAP20 PO (12:01)
[2020-12-11] MEDS ORDERED: TOBR5DRO7 EACHEYE (12:01)
[2020-12-11] MEDS ORDERED: CHLO25TA10 PO (12:04)
[2020-12-11] MEDS ORDERED: HYDR-3964 PO (12:04)
[2020-12-11] MEDS ORDERED: HYDR-4070 PO (12:04)
[2020-12-11] MEDS ORDERED: LISI40TA13 PO (12:04)
[2020-12-11] MEDS ORDERED: hydrALAZINE 20mg/ml inj. IV ONE (12:40)
[2020-12-11 12:42] LABS: CLARITY,URINE CLOUDY (Clear); COLOR,URINE YELLOW (Yellow); GLUCOSE, URINE NEGATIVE (Neg); KETONES,URINE NEGATIVE (Neg); LEUKOCYTE ESTERASE ,URINE MODERATE (Neg); NITRITES, URINE NEGATIVE (Neg); OCCULT BLOOD,URINE MODERATE (Neg); PROTEIN,URINE 100 mg/dl (Neg); UROBILINOGEN,URINE 0.2 E.U/dL (0.2-1.0)
[2020-12-11 12:56] LABS: UA COLLECTION TYPE CLN CATCH MIDSTREAM
[2020-12-11 12:57] LABS: BACTERIA,URINE 4+ /HPF (Neg); MUCUS STRANDS FEW /LPF (Neg); SQUAMOUS EPITHELIAL CELL,UR FEW /LPF (FEW); WBC CLUMPS,URINE MODERATE /HPF (NEGATIVE); WBC,URINE TNTC /HPF (0-4)
--- NOTE | 2020-12-11 14:30 | NUR ---
Patient in room PCU 3025. I have received report from MAREN Hutchins RN and had the opportunity to ask questions and assume patient care.
[2020-12-11 15:00] VITALS: BP 188/72
--- NOTE | 2020-12-11 15:00 | NUR ---
received pt into room 3026D oriented to surroundings pt c/o non-radiating chest pain 07/27,oc=809/72, dr. Mayer paged with above information
[2020-12-11] MEDS: CefTRIAXone/D5W-Rocephin 1gm 50 ML IV SCH (16:30)
--- NOTE | 2020-12-11 16:45 | NUR ---
bp =192/76 pt medicated with 10 mg hydralazine slow iv push,per prior order,no reply from Dr. tejada
[2020-12-11] MEDS: hydrALAZINE 20mg/ml inj. IV PRN (16:48)
[2020-12-11 16:57] VITALS: BP 192/76
[2020-12-11 18:00] VITALS: BP 179/58
--- NOTE | 2020-12-11 18:20 | NUR ---
Problems reprioritized. Patient report given, questions answered & plan of care reviewed with gigi gonzalez.
--- NOTE | 2020-12-11 18:53 | NUR ---
orders taken from Dr Mayer for nitro gtt to run at 5mcg,noc shift rn Yobany notified notified
[2020-12-11] MEDS: nitroGLYCERIN-Tridil 50MG/D5W 250 ML IV SCH (19:39)
[2020-12-11] MEDS: K and/or MAG REPLACEMENT MC SCH (19:57)
[2020-12-11 20:00] VITALS: BP 189/74
[2020-12-11] MEDS ORDERED: labetalol 100mg tablet PO SCH (20:00)
[2020-12-11] MEDS ORDERED: HYDROcodone/acetaminophen 5mg/325mg tablet PO PRN (20:00)
[2020-12-11] MEDS: heparin, porcine 5000 units/ml vial SQ SCH (20:07)
[2020-12-11] MEDS: labetalol 100mg tablet PO SCH (20:15)
[2020-12-11 22:00] VITALS: BP 153/63
[2020-12-12] VITALS (20 sets, daily range): BP systolic 126–188; BP diastolic 54–98
[2020-12-12] MEDS: HYDROcodone/acetaminophen 5mg/325mg tablet PO PRN (02:00)
--- NOTE | 2020-12-12 05:25 | NUR ---
Notified pt in [id number] Marzena Biggs was started on a Nitro gtt around 1999 last night @5mcg/ min BP at 1999 was systolic of 190 BP has been trending down and now BP is up to 172 syst. diastolic 62. Would you like the gtt increased? Alex [phone]
[2020-12-12] MEDS: nitroGLYCERIN-Tridil 50MG/D5W 250 ML IV SCH (05:31)
--- NOTE | 2020-12-12 05:33 | NUR ---
pagedominick paez regarding pt BP elevated while on Nitro gtt which was ordered and running @ 5mcg/min. I rcieved new orders to adjust the rate to 7mcg/min. New rate has been adjusted will continue to monitor pt.
[2020-12-12] MEDS: normal saline 1000ml 1,000 ML IV SCH (06:40)
[2020-12-12 07:45] LABS: HEMOGLOBIN 9.5 g/dl (12.0-16.0); MONOCYTES # (AUTO) 0.6 X10'3 (0-0.9); NEUTROPHILS # (AUTO) 2.5 X10'3 (1.8-7.7); WHITE BLOOD COUNT 4.2 X10'3 (4.5-11.0)
[2020-12-12 07:47] LABS: BASOPHILS % (AUTO) 1.1 % (0-1); EOSINOPHILS % (AUTO) 0.9 % (0-6); HEMATOCRIT 29.8 % (35.0-45.0); LYMPHOCYTES # (AUTO) 1.1 X10'3 (1.1-4.8); LYMPHOCYTES % (AUTO) 25.3 % (21-51); MEAN CORPUSCULAR HEMOGLOBIN 31.3 PG (27.0-31.0); MEAN CORPUSCULAR HGB CONC 31.8 g/dL (33.0-36.5); MEAN CORPUSCULAR VOLUME 98.2 FL (78-98); MEAN PLATELET VOLUME 10.1 FL (7.4-10.4); MONOCYTES % (AUTO) 13.2 % (2-12); NEUTROPHILS % (AUTO) 59.5 % (42-75); PLATELET COUNT 168 X10'3 (140-440); RED BLOOD COUNT 3.03 X10'6 (4.20-5.60); RED CELL DISTRIBUTION WIDTH 14.1 % (11.5-14.5)
[2020-12-12] MEDS: heparin, porcine 5000 units/ml vial SQ SCH ×2 (08:00→20:30)
[2020-12-12] MEDS: tobramycin/dexamethasone ophthalmic suspension EACHEYE SCH (08:00)
[2020-12-12] MEDS: labetalol 100mg tablet PO SCH ×3 (08:00→20:27)
[2020-12-12] MEDS: aspirin 81mg tablet.DR PO SCH (08:00)
[2020-12-12] MEDS: K and/or MAG REPLACEMENT MC SCH ×2 (08:00→20:00)
[2020-12-12 08:08] LABS: % IRON SATURATION 18 % (11-46); IRON 31 UG/DL (49-151); TOTAL IRON BINDING CAPACITY 175 UG/DL (259-388)
[2020-12-12 08:20] LABS: ALANINE AMINOTRANSFERASE 33 U/L (12-78); ALBUMIN 3.3 G/DL (3.4-5.0); ALBUMIN/GLOBULIN RATIO 0.9 (1.1-1.5); ALKALINE PHOSPHATASE 73 IU/L (46-116); ANION GAP 8 (8-16); ASPARTATE AMINO TRANSFERASE 32 U/L (10-37); BILIRUBIN,TOTAL 0.4 MG/DL (0.1-1.0); BLOOD UREA NITROGEN 21 MG/DL (7-18); BUN/CREATININE RATIO 20.2 (6.6-38.0); CALCIUM 9.1 MG/DL (8.5-10.1); CHLORIDE 108 MMOL/L (99-107); CHOL/HDL RATIO 2.5 (0.00-4.99); CHOLESTEROL 150 MG/DL (0-200); CREATININE 1.04 MG/DL (0.40-0.90); FERRITIN 236 NG/ML (8-252); GLUCOSE 94 MG/DL (70-104); HDL CHOLESTEROL 60 MG/DL (35-60); LDL CHOLESTEROL 82 MG/DL (50-100); PHOSPHORUS 3.2 MG/DL (2.3-4.5); POTASSIUM 3.9 MMOL/L (3.5-5.1); SODIUM 143 MMOL/L (135-145); TOTAL CARBON DIOXIDE 26.7 MMOL/L (24-32); TOTAL PROTEIN 6.9 G/DL (6.4-8.2); TRIGLYCERIDES 75 MG/DL (20-135); eGFR 60 ML/MIN
[2020-12-12] MEDS ORDERED: hydrALAZINE 20mg/ml inj. IV ONE ×2 (11:15→11:40)
--- NOTE | 2020-12-12 11:55 | NUR ---
assisted primary RN with transporting patient to nuc med for stress test, RN giving hydrazaline IV push as ordered, pt mobile monitor transferred to tele box, assisted pt with toilet needs, arrived to stress lab at 1220
--- NOTE | 2020-12-12 11:59 | NUR ---
11:59 bp 171/80 post iv push
--- NOTE | 2020-12-12 12:00 | NUR ---
Some medications did not scan nurse was helping MRI techs to take her and did not hit save so it timed out.
[2020-12-12] MEDS ORDERED: regadenoson 0.4mg/5ml syringe IV ONE (12:15)
--- NOTE | 2020-12-12 12:20 | NUR ---
BP 170/58, 60 HR, pt in stress lab for test
[2020-12-12] MEDS: chlorthalidone 25mg tablet PO SCH (12:57)
[2020-12-12] MEDS: furosemide 20MG tablet PO SCH (12:57)
[2020-12-12] MEDS: lisinopril 20mg tablet PO SCH (12:58)
[2020-12-12] MEDS: CefTRIAXone/D5W-Rocephin 1gm 50 ML IV SCH ×2 (15:30→15:49)
--- NOTE | 2020-12-12 17:27 | NUR ---
1600 Pt's IV not working. PICC Nurse stated she could not do it. Charge Nurse tried x2 and could not get IV on pt. Called pharmacy and they are doing a 1 time dose at 2000 and then 0800 tomorrow. Pt went to [facility] scan and they wanted saline locked so waited for her to come back then IV went bad with only about 15ml infused.
--- NOTE | 2020-12-12 18:31 | NUR ---
Patient in room PCU 3025. I have received report from Keica Bell RN and had the opportunity to ask questions and assume patient care.
[2020-12-12] MEDS ORDERED: CefTRIAXone/D5W-Rocephin 1gm 50 ML IV ONE (20:00)
[2020-12-12] MEDS: cloNIDine 0.1 mg tablet PO SCH (23:19)
[2020-12-13 02:00] VITALS: BP 164/65
[2020-12-13] MEDS: hydrALAZINE 20mg/ml inj. IV PRN (02:32)
[2020-12-13] MEDS: normal saline 1000ml 1,000 ML IV SCH (02:40)
[2020-12-13 06:17] LABS: BASOPHILS % (AUTO) 0.9 % (0-1); EOSINOPHILS # (AUTO) 0.1 X10'3 (0-0.9); EOSINOPHILS % (AUTO) 1.3 % (0-6); HEMATOCRIT 28.9 % (35.0-45.0); HEMOGLOBIN 9.4 g/dl (12.0-16.0); LYMPHOCYTES # (AUTO) 0.9 X10'3 (1.1-4.8); LYMPHOCYTES % (AUTO) 20.4 % (21-51); MEAN CORPUSCULAR HEMOGLOBIN 31.8 PG (27.0-31.0); MEAN CORPUSCULAR HGB CONC 32.6 g/dL (33.0-36.5); MEAN CORPUSCULAR VOLUME 97.5 FL (78-98); MEAN PLATELET VOLUME 10.2 FL (7.4-10.4); MONOCYTES # (AUTO) 0.6 X10'3 (0-0.9); MONOCYTES % (AUTO) 13.5 % (2-12); NEUTROPHILS # (AUTO) 2.7 X10'3 (1.8-7.7); NEUTROPHILS % (AUTO) 63.9 % (42-75); PLATELET COUNT 155 X10'3 (140-440); RED BLOOD COUNT 2.96 X10'6 (4.20-5.60); RED CELL DISTRIBUTION WIDTH 14.2 % (11.5-14.5); WHITE BLOOD COUNT 4.2 X10'3 (4.5-11.0)
[2020-12-13 06:32] LABS: ALANINE AMINOTRANSFERASE 30 U/L (12-78); ALBUMIN 3.1 G/DL (3.4-5.0); ALBUMIN/GLOBULIN RATIO 0.9 (1.1-1.5); ALKALINE PHOSPHATASE 69 IU/L (46-116); ANION GAP 8 (8-16); ASPARTATE AMINO TRANSFERASE 24 U/L (10-37); BILIRUBIN,TOTAL 0.3 MG/DL (0.1-1.0); BLOOD UREA NITROGEN 21 MG/DL (7-18); BUN/CREATININE RATIO 21.4 (6.6-38.0); CALCIUM 9.1 MG/DL (8.5-10.1); CHLORIDE 107 MMOL/L (99-107); CREATININE 0.98 MG/DL (0.40-0.90); GLUCOSE 98 MG/DL (70-104); PHOSPHORUS 3.4 MG/DL (2.3-4.5); POTASSIUM 3.7 MMOL/L (3.5-5.1); SODIUM 143 MMOL/L (135-145); TOTAL CARBON DIOXIDE 28.5 MMOL/L (24-32); TOTAL PROTEIN 6.7 G/DL (6.4-8.2); eGFR 65 ML/MIN
[2020-12-13] MEDS: tobramycin/dexamethasone ophthalmic suspension EACHEYE SCH (08:00)
[2020-12-13] MEDS: K and/or MAG REPLACEMENT MC SCH (08:00)
[2020-12-13 08:11] VITALS: BP_SYST 135
[2020-12-13] MEDS: CefTRIAXone/D5W-Rocephin 1gm 50 ML IV SCH (08:11)
[2020-12-13] MEDS: furosemide 20MG tablet PO SCH (08:11)
[2020-12-13] MEDS: lisinopril 20mg tablet PO SCH (08:11)
[2020-12-13] MEDS: cloNIDine 0.1 mg tablet PO SCH (08:12)
[2020-12-13] MEDS: HYDROcodone/acetaminophen 5mg/325mg tablet PO PRN (08:12)
[2020-12-13] MEDS: chlorthalidone 25mg tablet PO SCH (08:12)
[2020-12-13] MEDS: aspirin 81mg tablet.DR PO SCH (08:13)
[2020-12-13] MEDS: labetalol 100mg tablet PO SCH (08:13)
[2020-12-13] MEDS: heparin, porcine 5000 units/ml vial SQ SCH (08:17)
[2020-12-13] MEDS ORDERED: NITR0.4T51 SL (11:18)
[2020-12-13] MEDS ORDERED: CLON0.1T2 PO (11:18)
[2020-12-13] MEDS ORDERED: ASPI-1071 PO (11:18)
[2020-12-13] MEDS ORDERED: ASCO500C18 PO (11:21)
[2020-12-13] MEDS ORDERED: FERR325T28 PO (11:21)
[2020-12-13] MEDS ORDERED: POLY17PO10 PO (11:21)
--- NOTE | 2020-12-13 14:17 | NUR ---
Patient discharged home at 1332. Discharge packet signed before leaving, RX faxed to pharmacy. patient belongings sent with patient, tele d/c'd, PIV removed, patient was wheeled down and left via private vehicle with grandson.
== END 2020-12-13 13:32 | disposition home or self-care (01) | DRG 392 ==
LOC: ER 07:17 → ED HOLD 10:39 → PCU 3S 14:41
PROVIDERS: ADMIT Family Medicine; ATTEND Family Medicine
PROC: 4A02XM4 Measurement of Cardiac Total Activity, External Approach (ICD-10-PCS; principal; 2020-12-11)
PROC: 3E073KZ Introduction of Other Diagnostic Substance into Coronary Artery, Percutaneous Approach (ICD-10-PCS; 2020-12-11)
DX: K21.9 Gastro-esophageal reflux disease without esophagitis (principal); I16.1 Hypertensive emergency; N39.0 Urinary tract infection, site not specified; I13.0 Hypertensive heart and chronic kidney disease with heart failure and stage 1 through stage 4 chronic kidney disease, or unspecified chronic kidney disease; D64.9 Anemia, unspecified; E11.22 Type 2 diabetes mellitus with diabetic chronic kidney disease; F41.9 Anxiety disorder, unspecified; I49.5 Sick sinus syndrome; M19.90 Unspecified osteoarthritis, unspecified site; G89.4 Chronic pain syndrome; I50.9 Heart failure, unspecified; N18.9 Chronic kidney disease, unspecified; Z79.899 Other long term (current) drug therapy; Z96.652 Presence of left artificial knee joint; Z82.49 Family history of ischemic heart disease and other diseases of the circulatory system; Z90.710 Acquired absence of both cervix and uterus; Z95.0 Presence of cardiac pacemaker; Z88.0 Allergy status to penicillin; Z88.5 Allergy status to narcotic agent; Z88.8 Allergy status to other drugs, medicaments and biological substances; I16.0 Hypertensive urgency
CPT/HCPCS: 36415; 71045; 78451; 80053; 80061; 81001; 82728; 83036; 83540; 83550; 83735; 83880; 84100; 84443; 84484; 85025; 87077; 87081; 87088; 87186; 93005; 93017; 93306; 93308; 97110; 97161; 97530; 99285; A9500; G0378; J0280; J0360; J0696; J1644; J3490; J7030

== ENCOUNTER 2021-01-10 09:55 | Emergency (ER) | payer MEDICARE ==
[~2021-01-10] VITALS: Ht 170.2 cm; Wt 65.5 kg
[~2021-01-10 09:55] MED LIST changes: -AMLO10TA13 PO; +ASCO500C18 PO; +ASPI-1071 PO; -ASPI81TA52 PO; -ATOR20TA PO; +CHLO25TA10 PO; +CLON0.1T2 PO; +FERR325T28 PO; +HYDR-3964 PO; -HYDR-4069 PO; -LISI10TA27 PO; +LISI40TA13 PO; -MULT-1179 PO; +NITR0.4T51 SL; -ONDA4TAB12 PO; -ONDA8TAB6 PO; -PANT-47 PO; +POLY17PO10 PO; +POTA8CAP20 PO; -POTA8TAB3 PO; +TOBR5DRO7 EACHEYE
[2021-01-10 11:13] LABS: BASOPHILS # (AUTO) 0.1 X10'3 (0-0.2); HEMOGLOBIN 10.9 g/dl (12.0-16.0); WHITE BLOOD COUNT 4.4 X10'3 (4.5-11.0)
[2021-01-10 11:15] LABS: BASOPHILS % (AUTO) 1.4 % (0-1); EOSINOPHILS % (AUTO) 0.8 % (0-6); HEMATOCRIT 33.6 % (35.0-45.0); LYMPHOCYTES # (AUTO) 1.3 X10'3 (1.1-4.8); LYMPHOCYTES % (AUTO) 29.9 % (21-51); MEAN CORPUSCULAR HGB CONC 32.4 g/dL (33.0-36.5); MEAN CORPUSCULAR VOLUME 95.4 FL (78-98); MEAN PLATELET VOLUME 10.1 FL (7.4-10.4); MONOCYTES # (AUTO) 0.5 X10'3 (0-0.9); MONOCYTES % (AUTO) 10.3 % (2-12); NEUTROPHILS # (AUTO) 2.5 X10'3 (1.8-7.7); NEUTROPHILS % (AUTO) 57.6 % (42-75); PLATELET COUNT 140 X10'3 (140-440); RED BLOOD COUNT 3.53 X10'6 (4.20-5.60); RED CELL DISTRIBUTION WIDTH 12.7 % (11.5-14.5)
[2021-01-10 11:26] LABS: ALANINE AMINOTRANSFERASE 34 U/L (12-78); ALBUMIN 3.6 G/DL (3.4-5.0); ALBUMIN/GLOBULIN RATIO 0.9 (1.1-1.5); ALKALINE PHOSPHATASE 92 IU/L (46-116); ANION GAP 5 (8-16); ASPARTATE AMINO TRANSFERASE 25 U/L (10-37); BILIRUBIN,TOTAL 0.3 MG/DL (0.1-1.0); BLOOD UREA NITROGEN 23 MG/DL (7-18); CALCIUM 9.6 MG/DL (8.5-10.1); CHLORIDE 107 MMOL/L (99-107); GLUCOSE 119 MG/DL (70-104); POTASSIUM 3.7 MMOL/L (3.5-5.1); SODIUM 143 MMOL/L (135-145); TOTAL CARBON DIOXIDE 31.3 MMOL/L (24-32); TOTAL PROTEIN 7.4 G/DL (6.4-8.2); eGFR 63 ML/MIN
[2021-01-10] MEDS ORDERED: iohexol 350MG/ML 100ml bottle IV ONE (12:12)
[2021-01-10 12:44] LABS: CLARITY,URINE CLEAR (Clear); COLOR,URINE YELLOW (Yellow); GLUCOSE, URINE NEGATIVE (Neg); KETONES,URINE NEGATIVE (Neg); LEUKOCYTE ESTERASE ,URINE NEGATIVE (Neg); NITRITES, URINE NEGATIVE (Neg); OCCULT BLOOD,URINE TRACE-INTACT (Neg); PH,URINE 6.5 (4.8-8.0); PROTEIN,URINE 100 mg/dl (Neg); UROBILINOGEN,URINE 0.2 E.U/dL (0.2-1.0)
[2021-01-10 12:47] LABS: UA COLLECTION TYPE CLN CATCH MIDSTREAM
[2021-01-10 12:50] LABS: BACTERIA,URINE FEW /HPF (Neg); MUCUS STRANDS NONE SEEN /LPF (Neg); SQUAMOUS EPITHELIAL CELL,UR FEW /LPF (FEW); WBC,URINE 0-4 /HPF (0-4)
[2021-01-10] MEDS ORDERED: acetaminophen 325mg tablet PO ONE (13:30)
[2021-01-10 14:00] VITALS: BP 188/72
== END 2021-01-10 14:58 | disposition home or self-care (01) ==
LOC: ER 09:56
DX: R07.89 Other chest pain (principal); R91.8 Other nonspecific abnormal finding of lung field; I13.0 Hypertensive heart and chronic kidney disease with heart failure and stage 1 through stage 4 chronic kidney disease, or unspecified chronic kidney disease; E11.22 Type 2 diabetes mellitus with diabetic chronic kidney disease; N18.9 Chronic kidney disease, unspecified; M19.90 Unspecified osteoarthritis, unspecified site; G89.29 Other chronic pain; F41.9 Anxiety disorder, unspecified; Z87.01 Personal history of pneumonia (recurrent); Z87.440 Personal history of urinary (tract) infections; Z90.710 Acquired absence of both cervix and uterus; Z98.890 Other specified postprocedural states; Z95.0 Presence of cardiac pacemaker; Z85.9 Personal history of malignant neoplasm, unspecified; Z88.6 Allergy status to analgesic agent; Z88.0 Allergy status to penicillin; Z88.5 Allergy status to narcotic agent; Z88.8 Allergy status to other drugs, medicaments and biological substances; Z79.82 Long term (current) use of aspirin; Z79.899 Other long term (current) drug therapy
CPT/HCPCS: 36415; 71045; 71275; 74174; 80053; 81001; 83880; 84484; 85025; 93005; 99285; Q9967

== ENCOUNTER 2021-03-18 10:04 | Emergency (ER) | payer MEDICARE ==
[~2021-03-18] VITALS: Ht 170.2 cm; Wt 59.1 kg
[~2021-03-18 10:04] MED LIST changes: -FERR325T28 PO; -POLY17PO10 PO
[2021-03-18 10:06] VITALS: BP 215/93
[2021-03-18] MEDS ORDERED: oxyCODONE SR 10mg (sust. release) tab PO ONE (10:50)
[2021-03-18] MEDS ORDERED: oxyCODONE IR 5mg (immed. release) tablet PO ONE (11:00)
[2021-03-18] MEDS ORDERED: fentaNYL/PF 50MCG/1 ML 2ML syringe IV ONE (12:05)
--- NOTE | 2021-03-18 12:41 | NUR ---
Pt refusing Fentanyl, stating that she believes it is to "kill" her. Pt refusing to let us change her linens, as she had an episode of urinary incontinence. Explained extensively to the pt why we were needing to change her bed. Pt adamently refusing linen change. Then request to be moved to chair, though then states her legs "aren't working".
--- NOTE | 2021-03-18 12:59 | NUR ---
Pt continuing to refuse vitals.
--- NOTE | 2021-03-18 13:32 | NUR ---
PTS GRANDSON AT BEDSIDE, SUPPORTIVE.
[2021-03-18] MEDS ORDERED: QUEtiapine 25mg tablet PO STA (14:10)
[2021-03-18] MEDS ORDERED: DOCU100C38 PO (14:22)
[2021-03-18] MEDS ORDERED: HYDR-3972 PO (14:22)
--- NOTE | 2021-03-18 15:15 | NUR ---
Pt continued to refuse VS, including on discharge.
== END 2021-03-18 15:24 | disposition home or self-care (01) ==
LOC: ER 10:04
DX: C79.81 Secondary malignant neoplasm of breast (principal); G89.3 Neoplasm related pain (acute) (chronic); I50.9 Heart failure, unspecified; I11.0 Hypertensive heart disease with heart failure; E11.22 Type 2 diabetes mellitus with diabetic chronic kidney disease; I12.9 Hypertensive chronic kidney disease with stage 1 through stage 4 chronic kidney disease, or unspecified chronic kidney disease; N18.9 Chronic kidney disease, unspecified; Z87.440 Personal history of urinary (tract) infections; M19.90 Unspecified osteoarthritis, unspecified site; Z88.0 Allergy status to penicillin; Z88.6 Allergy status to analgesic agent; Z88.8 Allergy status to other drugs, medicaments and biological substances; Z87.01 Personal history of pneumonia (recurrent); Z79.82 Long term (current) use of aspirin; Z79.899 Other long term (current) drug therapy; Z90.710 Acquired absence of both cervix and uterus
CPT/HCPCS: 72131; 73502; 99284